=== PATIENT | male | born 1990 ===

== ENCOUNTER 2017-02-01 18:48 | Inpatient (IN) | payer MEDICAID, OTHER ==
[2017-02-01 19:24] LABS: BASO % 0.3 % (0.0-2.0); LYMPH # 1.2 K/uL (1.0-4.3); LYMPH % 11.4 % (20.0-40.0); MEAN CORPUSCULAR HEMOGLOBIN 24.9 pg (27.0-31.0); MEAN CORPUSCULAR HGB CONC 31.9 g/dL (33.0-37.0); MEAN PLATELET VOLUME 8.7 fL (7.2-11.7); MONO # 0.7 K/uL (0.0-0.8); MONO % 6.9 % (0.0-10.0); RED CELL DISTRIBUTION WIDTH 14.3 % (11.5-14.5); WHITE BLOOD COUNT 10.2 K/uL (4.8-10.8)
[2017-02-01 19:27] LABS: URINE BILIRUBIN NEGATIVE (NEGATIVE); URINE BLOOD NEGATIVE (NEGATIVE); URINE COLOR Yellow (YELLOW); URINE GLUCOSE (UA) NORMAL (Normal); URINE KETONE NEGATIVE (NEGATIVE); URINE LEUKOCYTE ESTERASE NEG Leu/uL (Negative); URINE PROTEIN NEGATIVE (NEGATIVE); URINE UROBILINOGEN NORMAL mg/dL (0.2-1.0); WBC URINE 3 /hpf (0-5)
[2017-02-01 19:31] LABS: CHLORIDE 93 mmol/L (98-107)
[2017-02-01 19:32] LABS: POTASSIUM 3.8 mmol/L (3.6-5.2); SODIUM 136 mmol/L (132-148)
[2017-02-01 19:34] LABS: BILIRUBIN,TOTAL 0.4 mg/dL (0.2-1.3); CARBON DIOXIDE 30 mmol/L (22-30); GFR AFRICAN-AMERICAN > 60
[2017-02-01 19:35] LABS: ALKALINE PHOSPHATASE 70 U/L (38-126); ALT/SGPT 28 U/L (21-72); AST/SGOT 29 U/L (17-59); BLOOD UREA NITROGEN 11 mg/dL (9-20); CALCIUM 8.5 mg/dl (8.6-10.4); GLUCOSE,RANDOM 97 mg/dL (75-110); TOTAL PROTEIN 7.8 g/dL (6.3-8.3)
[2017-02-01 19:36] LABS: ALCOHOL SERUM < 10 mg/dl (0-10)
--- NOTE | 2017-02-01 19:53 | C.PDOC ---
History Of Present Illness 26 y/o male presents to the ED requesting heroin detox. Pt states last use was this morning. Denies any other complaints at this time. Time Seen by Provider: 02/01/17 19:22 Chief Complaint (Nursing): Substance Abuse History Per: Patient History/Exam Limitations: no limitations Current Symptoms Are (Timing): Still Present Suicide/Self Injury Attempted (Context): None Modifying Factor(s): Narcotics Severity: Moderate Pain Scale Rating Of: 4 Associated Symptoms: denies: Suicidal Thoughts Involuntary Hold By: None Recent travel outside of the [place]: No Additional History Per: Patient Past Medical History Reviewed: Historical Data, Nursing Documentation, Vital Signs Vital Signs: Last Vital Signs Temp 97.8 F 02/01/17 18:55 Pulse 81 02/01/17 18:55 Resp 20 02/01/17 18:55 BP 143/78 02/01/17 18:55 Pulse Ox 98 02/01/17 19:53 Family History: States: Unknown Family Hx - Social History Hx Alcohol Use: No Hx Substance Use: Yes (heroin, marijuana, xanax) Review Of Systems Except As Marked, All Systems Reviewed And Found Negative. Constitutional: Negative for: Fever Cardiovascular: Negative for: Chest Pain Respiratory: Negative for: Shortness of Breath Gastrointestinal: Negative for: Vomiting Musculoskeletal: Negative for: Back Pain Skin: Negative for: Rash Neurological: Negative for: Weakness, Headache Psych: Negative for: Suicidal ideation, Withdrawal Physical Exam - Physical Exam Appears: Non-toxic, No Acute Distress Skin: Warm, Dry, No Rash Head: Atraumatic, Normacephalic Neck: Supple Chest: Symmetrical Cardiovascular: Rhythm Regular, No Murmur Respiratory: No Rales, No Rhonchi, No Wheezing Extremity: Bilateral: Atraumatic Neurological/Psych: Oriented x3 ED Course And Treatment - Laboratory Results Result Diagrams: 02/01/17 19:19 02/01/17 19:19 O2 Sat by Pulse Oximetry: 98 (on room air) Pulse Ox Interpretation: Normal Progress Note: Plan: CRISIS evaluation Disposition Discussed With : Nicole Zazueta Comment: accepted the pt on her service and took over the care at 8:23 PM Doctor Will See Patient In The: Hospital Counseled Patient/Family Regarding: Studies Performed, Diagnosis - Disposition Disposition: HOSPITALIZED Disposition Time: 20:23 Condition: FAIR - POA Present On Arrival: None - Clinical Impression Clinical Impression: Drug dependence, Opioid abuse - Scribe Statement The provider has reviewed the documentation as recorded by the Rigo Menezes Provider Attestation: All medical record entries made by the Rigo were at my direction and personally dictated by me. I have reviewed the chart and agree that the record accurately reflects my personal performance of the history, physical exam, medical decision making, and the department course for this patient. I have also personally directed, reviewed, and agree with the discharge instructions and disposition. Decision To Admit - Pt Status Changed To: Hospital Disposition Of: Inpatient - Admit Certification Admit to Inpatient:: After my assessment, the patient will require hospitalization for at least two midnights. This is because of the severity of symptoms shown, intensity of services needed, and/or the medical risk in this patient being treated as an outpatient. - InPatient: Physician Admission Certification: I certify that this patient requires 2 or more midnights of care for the following reason:: After my assessment, the patient will require hospitalization for at least two midnights. This is because of the severity of symptoms shown, intensity of services needed, and/or the medical risk in this patient being treated as an outpatient. - . Bed Request Type: Detox Admitting Physician: Nicole Zazueta Patient Diagnosis: Drug dependence, Opioid abuse
[2017-02-01] MEDS ORDERED: Albuterol HFA 90 mcg/actuation (8 g) INH PRN (21:10)
--- NOTE | 2017-02-02 11:52 | PCM.PSYCH ---
Initial Psychiatric Evaluation - Initial Psychiatric Evaluation Type of Admission: Voluntary Legal Status: Capacity Chief Complaint (in patient's own words): came in to get help History of Present Illness and Precipitating Events: This is a 26 years old HM currently living with sister and currently unemployed but gets family support, came to the ED to get help in heroin and Xanax detox. Patient reports of a long history of abusing heroin, THC and Xanax. As per the patient he started abusing heroin at 13 yrs of age, and over the course of years he started sniffing and injecting increasing amounts of heroin. As per the patient, yesterday he injected almost 15 bags of heroin and consumed 2 2mg ( 4mg) Xanax sticks. When he started experiencing withdrawal symptoms, he came to the hospital to get help. Patient reports of irritable mood, and reports withdrawal symptoms including sweating, headaches, anxiety, nausea, abdominal cramps and joint pains. He reports depressed mood but denies any suicidal ideation or homicidal ideation. Patient denies any auditory or visual hallucinations or any psychotic or manic symptoms. He denies any other substance abuse. Past medical history: Asthma Past psychiatric history: Patient reports history of multiple detoxes in the past. However he denies any past history of inpatient psychiatric hospitalizations or any history of follow- up with any psychiatrist. Patient denies any history of suicidal ideation or any suicidal attempt in the past. He denies any history of homicidal ideation or attempt in the past. Patient denies any history of auditory or visual hallucinations or any psychotic symptoms in the past Current Medications: Active Medications Generic Name Dose Route Start Last Admin Trade Name Freq PRN Reason Stop Dose Admin Albuterol 1 puff 02/01/17 21:10 Ventolin Hfa 90 Mcg/Actuation (8 G) INH RQ4 PRN sibilant musical ronchi Chlordiazepoxide 25 mg 02/01/17 20:44 02/01/17 21:44 Librium PO 25 mg Q6 PRN Administration withdrawal Clonidine HCl 0.1 mg 02/01/17 20:46 Catapres PO Q8 PRN opiate withdrawal Hydroxyzine HCl 25 mg 02/01/17 20:47 02/01/17 21:44 Atarax PO 25 mg Q6 PRN Administration Anxiety Ibuprofen 600 mg 02/01/17 20:45 Motrin Tab PO Q6 PRN pain Trazodone HCl 50 mg 02/01/17 20:49 02/01/17 21:44 Desyrel PO 50 mg HS PRN Administration insomnia Past Psychiatric History - Past Psychiatric History Previous Treatment History: Inpatient Pertinent Medical Hx (Current Medical&Sleep Prob, Allergies): Allergies Allergy/AdvReac Type Severity Reaction Status Date / Time FISH Allergy Verified 02/01/17 18:57 No Known Home Med 02/01/17 Review of Systems - Review of Systems All systems: reviewed and no additional remarkable complaints except - Psychiatric Psychiatric: Anxiety, Difficulty Concentrating, Irritability. absent: Auditory Hallucinations, Suicidal Ideation, Visual Hallucinations Mental Status Examination - Personal Presentation Personal Presentation: Looks stated age - Affect Affect: Constricted - Motor Activity Motor Activity: Calm - Reliability in Providing Information Reliability in Providing Information: Good - Speech Speech: Organized - Mood Mood: Anxious - Formal Thought Process Formal Thought Process: No Impairment - Obsessions/Compulsions Obsessions: No Compulsions: No - Cognitive Functions Orientation: Person, Place, Situation, Time Sensorium: Alert Attention/Concentration: Attentive Abstract Thinking: [employer] Estimate of Intelligence: Below average Judgement: Imparied, as evidence by: Poor judgement, Intact, as evidence by: Insight regarding need for hospitalization - Risk Risk: Withdrawal, Diminished functioning - Strength & Assets Inventory Strength & Assets Inventory: Family support DSM 5 DX - DSM 5 DSM 5 Diagnosis: Opioid use disorder severe Opioid withdrawal Sedative/Hypnotic use disorder severe Sedative/Hypnotic withdrawal Bipolar disorder - Recommended/Plan of Treatment Treatment Recommendations and Plan of Treatment: Opioid use disorder severe CBT Psychoeducation Supportive therapy, individual therapy Use SD for abstinence Opioid withdrawal CBT Psychoeducation Supportive therapy, individual therapy Clonidine when necessary Subutex when scoring Sedative/Hypnotic use disorder moderate CBT & Psychoeducation Use SD for abstinence Sedative/Hypnotic withdrawal CBT Psychoeducation Supportive therapy, individual therapy Librium when necessary Bipolar disorder CBT Psychoeducation Supportive therapy, individual therapy Trazodone 50 mg PO Q HS Gabapentin 100 mg by mouth 3 times a day - Smoking Cessation Smoking Cessation Initiated: No
[2017-02-02] MEDS ORDERED: Buprenorphine Hydrochloride 2 mg SL ONE (12:26)
[2017-02-02 16:30] VITALS: RESP 18
[2017-02-03] MEDS: Buprenorphine Hydrochloride 2 mg SL SCH (09:19)
--- NOTE | 2017-02-03 12:10 | PCM.PYCHPN ---
Psychiatric Progress Note - Psychiatric Progress Note Patient seen today, length of contact: 15 minutes Patient Chief Complaint: I'm feeling little better Problems Identified/Issues Discussed: Patient seen. Chart reviewed. Case discussed with the staff. Issues related to illness and treatment were discussed with the patient. Patient reported compliant with treatment with no adverse affects. Tolerating treatment very well. Reported feeling little better with the treatment very mild withdrawal symptoms. Better sleep. At the time of evaluation, patient was awake alert oriented 3, had no delusions, no auditory or visual hallucinations, no suicidal ideations or homicidal ideations. Medical Problems: Asthma Diagnostic Results: Reviewed DSM 5 Symptoms Update: Improving with treatment Medication Change: No Medical Record Reviewed: Yes Mental Status Examination - Cognitive Function Orientation: Person, Place, Situation, Time Memory: Intact Attention: WNL Concentration: WNL Association: WNL Fund of Knowledge: [facility] Decription of patient's judgement and insights: Fair - Mood Mood: Depressed (Less than before) - Affect Affect: Depressed - Speech Speech: Appropriate - Formal Thought Process Formal Thought Process: No Impairment Psychotic Thoughts and Behaviors: None - Suicidal Ideation Suicidal Ideation: No - Homicidal Ideation Homicidal Ideation: No Goal/Treatment Plan - Goal/Treatment Plan Need for Continued Stay: Remain at risks for inpatient hospitalization, Discharge may exacerbated symptoms, Severe functional impairment Progress Toward Problem(s) and Goals/Treatment Plan: Improving with treatment Patient education Supportive therapy Continue treatment as before Patient wants to go to any outpatient program or [facility] for follow-up care. Estimated Date of D/C: 02/06/17 - Smoking Cessation Smoking Cessation Initiated: No
[2017-02-03] MEDS ORDERED: Buprenorphine Hydrochloride 8 mg SL ONE (12:24)
[2017-02-04] MEDS: Buprenorphine Hydrochloride 2 mg SL SCH (09:16)
--- NOTE | 2017-02-04 16:10 | PCM.PYCHPN ---
Psychiatric Progress Note - Psychiatric Progress Note Patient seen today, length of contact: 15 minutes Patient Chief Complaint: I'm feeling much better Problems Identified/Issues Discussed: Patient seen. Chart reviewed. Case discussed with the staff. Issues related to illness and treatment were discussed with the patient. Patient reported compliant with treatment with no adverse affects. Tolerating treatment very well. Reported feeling much better with the treatment very mild withdrawal symptoms. Better sleep. Before patient was looking for a place where patient can go for Suboxone. Today patient reported he doesn't want any Suboxone or any other opiate help after discharge from the hospital. At the time of evaluation, patient was awake alert oriented 3, had no delusions, no auditory or visual hallucinations, no suicidal ideations or homicidal ideations. Medical Problems: Asthma Diagnostic Results: Reviewed DSM 5 Symptoms Update: Improving with treatment Medication Change: No Medical Record Reviewed: Yes Mental Status Examination - Cognitive Function Orientation: Person, Place, Situation, Time Memory: Intact Attention: WNL Concentration: WNL Association: WNL Fund of Knowledge: [facility] Decription of patient's judgement and insights: Fair - Mood Mood: Neutral - Affect Affect: Other (Appropriate) - Speech Speech: Appropriate - Formal Thought Process Formal Thought Process: No Impairment Psychotic Thoughts and Behaviors: None - Suicidal Ideation Suicidal Ideation: No - Homicidal Ideation Homicidal Ideation: No Goal/Treatment Plan - Goal/Treatment Plan Need for Continued Stay: Remain at risks for inpatient hospitalization, Discharge may exacerbated symptoms, Severe functional impairment Progress Toward Problem(s) and Goals/Treatment Plan: Improving with treatment Patient education Supportive therapy Continue treatment as before Patient wants to go to any outpatient program or [facility] for follow-up care but no does not want to get Suboxone. Estimated Date of D/C: 02/06/17 - Smoking Cessation Smoking Cessation Initiated: No
[2017-02-04 19:32] VITALS: BP 122/77; PULSE 73; TEMP 97.6; O2SAT 98
== END 2017-02-04 19:56 | disposition left against medical advice (07) | DRG 894 ==
LOC: C.ER 18:48 → C.7D 20:22 → MERGE 20:22
PROVIDERS: ADMIT Psychiatry & Neurology Psychiatry; ATTEND Psychiatry & Neurology Psychiatry
PROC: HZ2ZZZZ Detoxification Services for Substance Abuse Treatment (ICD-10-PCS; principal; 2017-02-01)
PROC: HZ59ZZZ Individual Psychotherapy for Substance Abuse Treatment, Supportive (ICD-10-PCS; 2017-02-01)
PROC: HZ52ZZZ Individual Psychotherapy for Substance Abuse Treatment, Cognitive-Behavioral (ICD-10-PCS; 2017-02-01)
PROC: HZ2ZZZZ Detoxification Services for Substance Abuse Treatment (ICD-10-PCS; 2017-02-01)
DX: F11.23 Opioid dependence with withdrawal (principal); F31.9 Bipolar disorder, unspecified; J45.909 Unspecified asthma, uncomplicated; F13.239 Sedative, hypnotic or anxiolytic dependence with withdrawal, unspecified